=== PATIENT | female | born 1945 | race Caucasian/White ===

== ENCOUNTER 2016-05-25 20:20 | Emergency (ER) | payer MEDICARE ==
[2016-05-25 21:15] VITALS: RESP 18
[2016-05-25] MEDS ORDERED: SODIUM CHLORIDE 0.9% 1,000 ML IV ONE (21:27)
--- NOTE | 2016-05-25 21:31 | ED ---
General Adult HPI - General Chief complaint: Altered Mental Status Stated complaint: Confusion Time Seen by Provider: 05/25/16 21:05 Source: patient, family, RN notes reviewed Mode of arrival: ambulatory Limitations: altered mental status - History of Present Illness Initial comments: Patient is a pleasant 70-year-old female presenting to the emergency department complaining of reported change in mental status. Patient states she feels fine and has no complaints. Patient denies feeling confused. Family states several people have noticed her being confused over the past 3-4 days. Son noticed more confusion today. Patient was trying to turn on the telephone with remote control. Patient had difficulty setting the table for dinner. Patient has made strange comments over the past couple of days. This is a new problem for the patient. - Related Data Home Medications Medication Instructions Recorded Confirmed Levothyroxine Sodium [Synthroid] 1 tab PO DAILY 05/25/16 05/25/16 predniSONE 1 tab PO DAILY 05/25/16 05/25/16 Allergies Allergy/AdvReac Type Severity Reaction Status Date / Time morphine AdvReac Unknown Verified 04/15/16 15:15 sertraline [From Zoloft] AdvReac Unknown Verified 04/15/16 15:15 venlafaxine [From Effexor] AdvReac Unknown Verified 04/15/16 15:15 Review of Systems ROS Statement: Those systems with pertinent positive or pertinent negative responses have been documented in the HPI. ROS Other: All systems not noted in ROS Statement are negative. Constitutional: Denies: fever Eyes: Denies: eye pain ENT: Denies: ear pain Respiratory: Denies: cough Cardiovascular: Denies: chest pain Endocrine: Denies: fatigue Gastrointestinal: Denies: abdominal pain Genitourinary: Denies: dysuria Musculoskeletal: Denies: back pain Skin: Denies: rash Neurological: Reports: confusion. Denies: headache, weakness Past Medical History Past Medical History: Thyroid Disorder Additional Past Medical History / Comment(s): glaucoma History of Any Multi-Drug Resistant Organisms: None Reported Additional Past Surgical History / Comment(s): ankle Past Psychological History: Anxiety Smoking Status: Never smoker Past Alcohol Use History: None Reported Past Drug Use History: None Reported General Exam Limitations: altered mental status General appearance: alert, in no apparent distress Head exam: Present: atraumatic Eye exam: Present: normal appearance, PERRL, EOMI. Absent: nystagmus ENT exam: Present: normal oropharynx Neck exam: Present: normal inspection Respiratory exam: Present: normal lung sounds bilaterally Cardiovascular Exam: Present: regular rate, normal rhythm GI/Abdominal exam: Present: soft. Absent: tenderness Extremities exam: Present: normal inspection Neurological exam: Present: alert, oriented X3, CN II-XII intact. Absent: motor sensory deficit Expanded Patient oriented to: Present: person, place, time Speech: Present: fluid speech Cranial nerves: EOM's Intact: Normal, Facial Sensation: Normal Cerebellar function: Finger to Nose: Normal Sensory exam: Upper Extremity Light Touch: Normal, Lower Extremity Light Touch: Normal Motor strength exam: RUE: 5, LUE: 5, RLE: 5, LLE: 5 Eye Response: (4) open spontaneously Motor Response: (6) obeys commands Verbal Response: (5) oriented Psychiatric exam: Present: normal affect, normal mood Skin exam: Absent: rash Course Vital Signs 05/25/16 05/25/16 05/25/16 21:11 21:40 22:00 Temperature 97.7 F 97.4 F L Pulse Rate 85 82 84 Respiratory 18 18 18 Rate Blood Pressure 186/84 156/79 162/76 O2 Sat by Pulse 97 100 99 Oximetry 05/25/16 22:03 Temperature Pulse Rate 84 Respiratory 18 Rate Blood Pressure 162/76 O2 Sat by Pulse 99 Oximetry EKG Findings - EKG Comments: EKG Findings:: Normal sinus rhythm 72. Normal intervals. Normal axis. Normal QRS. Normal ST-T. Medical Decision Making - Medical Decision Making Patient reevaluated and resting comfortably in bed. Case was discussed in detail with Dr. Durán who felt patient could comfortably go home however could be admitted if family was not comfortable with this. Patient and family updated on results. Patient requests discharge multiple times. Family is comfortable with discharge and will insure close follow-up with Dr. Hall. - Lab Data Result diagrams: 05/25/16 21:30 05/25/16 21:30 Lab Results 05/25/16 05/25/16 05/25/16 Range/Units 21:30 21:30 21:30 WBC 9.7 (3.8-10.6) k/uL RBC 4.26 (3.80-5.40) m/uL Hgb 14.0 (11.4-16.0) gm/dL Hct 42.7 (34.0-46.0) % MCV 100.3 H (80.0-100.0) fL MCH 32.9 (25.0-35.0) pg MCHC 32.8 (31.0-37.0) g/dL RDW 12.7 (11.5-15.5) % Plt Count 262 (150-450) k/uL Neutrophils % 84 % Lymphocytes % 8 % Monocytes % 6 % Eosinophils % 0 % Basophils % 1 % Neutrophils # 8.2 H (1.3-7.7) k/uL Lymphocytes # 0.7 L (1.0-4.8) k/uL Monocytes # 0.6 (0-1.0) k/uL Eosinophils # 0.0 (0-0.7) k/uL Basophils # 0.1 (0-0.2) k/uL PT (9.0-12.0) sec INR (<1.1) APTT (22.0-30.0) sec Sodium 139 (137-145) mmol/L Potassium 4.2 (3.5-5.1) mmol/L Chloride 102 (98-107) mmol/L Carbon Dioxide 28 (22-30) mmol/L Anion Gap 9 mmol/L BUN 24 H (7-17) mg/dL Creatinine 0.80 (0.52-1.04) mg/dL Est GFR (MDRD) Af Amer >60 (>60 ml/min/1.73 sqM) Est GFR (MDRD) Non-Af >60 (>60 ml/min/1.73 sqM) Glucose 109 H (74-99) mg/dL Calcium 10.0 (8.4-10.2) mg/dL Total Bilirubin 0.7 (0.2-1.3) mg/dL AST 28 (14-36) U/L ALT 42 (9-52) U/L Alkaline Phosphatase 57 (38-126) U/L Total Creatine Kinase 79 (30-135) U/L CK-MB (CK-2) 1.7 (0.0-2.4) ng/mL CK-MB (CK-2) Rel Index 2.2 Troponin I <0.012 (0.000-0.034) ng/mL Total Protein 6.6 (6.3-8.2) g/dL Albumin 4.1 (3.5-5.0) g/dL Urine Color Urine Appearance (Clear) Urine pH (5.0-8.0) Ur Specific [place] (1.001-1.035) Urine Protein (Negative) Urine Glucose (UA) (Negative) Urine Ketones (Negative) Urine Blood (Negative) Urine Nitrate (Negative) Urine Bilirubin (Negative) Urine Urobilinogen (<2.0) mg/dL Ur Leukocyte Esterase (Negative) Urine RBC (0-5) /hpf Urine WBC (0-5) /hpf Urine Mucus (None) /hpf Urine Opiates Screen (NotDetected) Ur Oxycodone Screen (NotDetected) Urine Methadone Screen (NotDetected) Ur Propoxyphene Screen (NotDetected) Ur Barbiturates Screen (NotDetected) U Tricyclic Antidepress (NotDetected) Ur Phencyclidine Scrn (NotDetected) Ur Amphetamines Screen (NotDetected) U Methamphetamines Scrn (NotDetected) U Benzodiazepines Scrn (NotDetected) Urine Cocaine Screen (NotDetected) U Marijuana (THC) Screen (NotDetected) 05/25/16 05/25/16 Range/Units 21:30 22:50 WBC (3.8-10.6) k/uL RBC (3.80-5.40) m/uL Hgb (11.4-16.0) gm/dL Hct (34.0-46.0) % MCV (80.0-100.0) fL MCH (25.0-35.0) pg MCHC (31.0-37.0) g/dL RDW (11.5-15.5) % Plt Count (150-450) k/uL Neutrophils % % Lymphocytes % % Monocytes % % Eosinophils % % Basophils % % Neutrophils # (1.3-7.7) k/uL Lymphocytes # (1.0-4.8) k/uL Monocytes # (0-1.0) k/uL Eosinophils # (0-0.7) k/uL Basophils # (0-0.2) k/uL PT 10.2 (9.0-12.0) sec INR 1.0 (<1.1) APTT 23.6 (22.0-30.0) sec Sodium (137-145) mmol/L Potassium (3.5-5.1) mmol/L Chloride (98-107) mmol/L Carbon Dioxide (22-30) mmol/L Anion Gap mmol/L BUN (7-17) mg/dL Creatinine (0.52-1.04) mg/dL Est GFR (MDRD) Af Amer (>60 ml/min/1.73 sqM) Est GFR (MDRD) Non-Af (>60 ml/min/1.73 sqM) Glucose (74-99) mg/dL Calcium (8.4-10.2) mg/dL Total Bilirubin (0.2-1.3) mg/dL AST (14-36) U/L ALT (9-52) U/L Alkaline Phosphatase (38-126) U/L Total Creatine Kinase (30-135) U/L CK-MB (CK-2) (0.0-2.4) ng/mL CK-MB (CK-2) Rel Index Troponin I (0.000-0.034) ng/mL Total Protein (6.3-8.2) g/dL Albumin (3.5-5.0) g/dL Urine Color Yellow Urine Appearance Clear (Clear) Urine pH 6.0 (5.0-8.0) Ur Specific [place] 1.017 (1.001-1.035) Urine Protein Negative (Negative) Urine Glucose (UA) Negative (Negative) Urine Ketones 1+ H (Negative) Urine Blood Moderate H (Negative) Urine Nitrate Negative (Negative) Urine Bilirubin Negative (Negative) Urine Urobilinogen <2.0 (<2.0) mg/dL Ur Leukocyte Esterase Negative (Negative) Urine RBC 25 H (0-5) /hpf Urine WBC 3 (0-5) /hpf Urine Mucus Rare H (None) /hpf Urine Opiates Screen Not Detected (NotDetected) Ur Oxycodone Screen Not Detected (NotDetected) Urine Methadone Screen Not Detected (NotDetected) Ur Propoxyphene Screen Not Detected (NotDetected) Ur Barbiturates Screen Not Detected (NotDetected) U Tricyclic Antidepress Not Detected (NotDetected) Ur Phencyclidine Scrn Not Detected (NotDetected) Ur Amphetamines Screen Not Detected (NotDetected) U Methamphetamines Scrn Not Detected (NotDetected) U Benzodiazepines Scrn Not Detected (NotDetected) Urine Cocaine Screen Not Detected (NotDetected) U Marijuana (THC) Screen Not Detected (NotDetected) - Radiology Data Radiology results: report reviewed (Computed tomography scan shows no acute process) Disposition Clinical Impression: Confusion Disposition: HOME SELF-CARE Condition: Stable Instructions: Altered Mental Status (ED) Additional Instructions: Please follow-up with Dr. Hall tomorrow. Return for increased confusion, weakness, fevers, worsening symptoms or other concerns. Please have Dr. Hall review results from today and urine culture results. Referrals: Alex Hall MD [Primary Care Provider] - 1-2 days
[2016-05-25 21:43] LABS: Basophils # (A) 0.1 k/uL (0-0.2); Basophils % (A) 1 %; CH 33.9; CHCM 33.9; Eosinophils % (A) 0 %; HCT 42.7 % (34.0-46.0); HDW 2.17; Luc # (Auto) 0.09; Luc % (Auto) 1; Lymphocytes # (A) 0.7 k/uL (1.0-4.8); Lymphocytes % (A) 8 %; MCH 32.9 pg (25.0-35.0); MCHC 32.8 g/dL (31.0-37.0); MCV 100.3 fL (80.0-100.0); Mean Platelet Volume 7.3; Monocytes # (A) 0.6 k/uL (0-1.0); Monocytes % (A) 6 %; Neutrophils # (A) 8.2 k/uL (1.3-7.7); Neutrophils % (A) 84 %; RBC 4.26 m/uL (3.80-5.40); RDW 12.7 % (11.5-15.5); WBC 9.7 k/uL (3.8-10.6); WBC (Perox) 10.38
[2016-05-25 21:58] LABS: Partial Thromboplastin Time 23.6 sec (22.0-30.0); Prothrombin Time 10.2 sec (9.0-12.0)
[2016-05-25 22:03] LABS: ALT 42 U/L (9-52); AST 28 U/L (14-36); Alkaline Phosphatase 57 U/L (38-126); Anion Gap 9 mmol/L; Blood Urea Nitrogen 24 mg/dL (7-17); Carbon Dioxide 28 mmol/L (22-30); Chloride 102 mmol/L (98-107); Glucose 109 mg/dL (74-99); Non-African American GFR(MDRD) >60 (>60 ml/min/1.73 sqM); Potassium 4.2 mmol/L (3.5-5.1); Sodium 139 mmol/L (137-145); Total Bilirubin 0.7 mg/dL (0.2-1.3); Total Protein 6.6 g/dL (6.3-8.2)
--- NOTE | 2016-05-25 22:15 | CT ---
EXAMINATION TYPE: CT brain wo con DATE OF EXAM: 05/25/2016 10:00 PM COMPARISON: NONE HISTORY: Confusion CT DLP: mGycm Automated exposure control for dose reduction was used. FINDINGS: There is mild cerebral cortical atrophy. There is no mass effect nor midline shift. There is no sign of intracranial hemorrhage. The calvarium is intact. There is incomplete pneumatization of left masto id sinus. IMPRESSION: Mild atrophy. No acute intracranial abnormality. There is evidence for mild left-sided mastoiditis.
[2016-05-25 22:43] LABS: Creatine Kinase 79 U/L (30-135)
[2016-05-25 22:56] LABS: Creatine Kinase MB 1.7 ng/mL (0.0-2.4); Troponin I <0.012 ng/mL (0.000-0.034)
[2016-05-25 23:05] LABS: Appearance,Urine Clear (Clear); Bilirubin,Urine Negative (Negative); Glucose,Urine (UA) Negative (Negative); Ketones,Urine 1+ (Negative); Leukocyte Esterase,Urine Negative (Negative); Mucus,Urine Rare /hpf; Nitrite,Urine Negative (Negative); Particle Count 1296; Protein,Urine Negative (Negative); RBC,Urine 25 /hpf (0-5); Specific Gravity,Urine 1.017 (1.001-1.035); UA Billing (MACRO vs. MICRO) MICRO; Urobilinogen,Urine <2.0 mg/dL (<2.0); WBC,Urine 3 /hpf (0-5)
--- NOTE | 2016-05-25 23:12 | XR ---
EXAMINATION TYPE: XR chest 2V DATE OF EXAM: 05/25/2016 10:42 PM COMPARISON: NONE HISTORY: Confusion TECHNIQUE: Frontal and lateral views of the chest are obtained. FINDINGS: Heart and mediastinum are normal. Lungs are clear. Diaphragm is normal. Bony thorax is int act. There are chest leads. Pulmonary vascularity is normal. IMPRESSION: Normal chest
[2016-05-25] MEDS ORDERED: SODIUM CHLORIDE 0.9% 500 ML IV STA (23:19)
[2016-05-26 00:51] VITALS: BP 171/80; PULSE 87; TEMP 97.4
== END 2016-05-26 00:51 | disposition home or self-care (01) ==
LOC: EC 20:20
DX: R41.0 Disorientation, unspecified (principal); E07.9 Disorder of thyroid, unspecified; Z79.52 Long term (current) use of systemic steroids; Z79.899 Other long term (current) drug therapy; Z88.5 Allergy status to narcotic agent; Z88.8 Allergy status to other drugs, medicaments and biological substances
CPT/HCPCS: 36415; 70450; 71020; 80053; 80306; 81001; 82550; 82553; 84484; 85025; 85610; 85730; 87086; 93005; 96360; 96361; 99285

== ENCOUNTER 2016-06-01 15:46 | Inpatient (IN) | payer MEDICARE ==
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
[2016-06-01 17:33] LABS: Basophils % (A) 0 %; CH 33.9; CHCM 33.9; Eosinophils % (A) 0 %; HCT 43.1 % (34.0-46.0); HDW 2.22; HGB 14.4 gm/dL (11.4-16.0); Luc # (Auto) 0.03; Luc % (Auto) 0; Lymphocytes # (A) 0.3 k/uL (1.0-4.8); Lymphocytes % (A) 5 %; MCH 33.5 pg (25.0-35.0); MCHC 33.4 g/dL (31.0-37.0); MCV 100.4 fL (80.0-100.0); Mean Platelet Volume 7.2; Monocytes # (A) 0.3 k/uL (0-1.0); Monocytes % (A) 4 %; Neutrophils # (A) 6.2 k/uL (1.3-7.7); Neutrophils % (A) 91 %; RBC 4.29 m/uL (3.80-5.40); RDW 12.5 % (11.5-15.5); WBC 6.9 k/uL (3.8-10.6); WBC (Perox) 7.34
[2016-06-01 17:37] LABS: Acetaminophen <10.0 ug/mL; Anion Gap 8 mmol/L; Blood Urea Nitrogen 14 mg/dL (7-17); Calcium 10.2 mg/dL (8.4-10.2); Carbon Dioxide 30 mmol/L (22-30); Chloride 101 mmol/L (98-107); Glucose 119 mg/dL (74-99); Non-African American GFR(MDRD) >60 (>60 ml/min/1.73 sqM); Potassium 4.3 mmol/L (3.5-5.1); Salicylate <1.0 mg/dL; Sodium 139 mmol/L (137-145)
[2016-06-01 18:06] LABS: Appearance,Urine Clear (Clear); Bilirubin,Urine Negative (Negative); Glucose,Urine (UA) Negative (Negative); Ketones,Urine Negative (Negative); Leukocyte Esterase,Urine Negative (Negative); Mucus,Urine Rare /hpf; Nitrite,Urine Negative (Negative); Particle Count 356; Protein,Urine Negative (Negative); RBC,Urine 4 /hpf (0-5); Specific Gravity,Urine 1.004 (1.001-1.035); Squamous Epithelial Cell,Urine <1 /hpf (0-4); UA Billing (MACRO vs. MICRO) MICRO; Urobilinogen,Urine <2.0 mg/dL (<2.0); WBC,Urine <1 /hpf (0-5)
[2016-06-01] MEDS ORDERED: ALPRAZolam 0.5 MG TAB PO STA (21:32)
[2016-06-01] MEDS ORDERED: MAGNESIUM HYDROXIDE 2,400 MG/10 ML CUP PO PRN (21:59)
[2016-06-01] MEDS ORDERED: ACETAMINOPHEN TAB 325 MG TAB PO PRN (21:59)
[2016-06-01] MEDS ORDERED: MAG HYDROX/AL HYDROX/SIMETH 30 ML CUP PO PRN (21:59)
[2016-06-01] MEDS ORDERED: LORazepam 2 MG/ML SYRINGE IM PRN (22:12)
[2016-06-02 00:01] VITALS: BMI 50.8
[2016-06-02] MEDS: LEVOTHYROXINE 50 MCG TAB PO SCH ×2 (08:34→10:37)
[2016-06-02] MEDS: METOPROLOL TARTRATE 25 MG TAB PO SCH ×2 (08:36→21:15)
[2016-06-02] MEDS: PANTOPRAZOLE 40 MG TABLET PO SCH (08:36)
[2016-06-02] MEDS ORDERED: prednisoLONE ACETATE 1% OPHTH DROPS 1 ML BTL BOTH EYES SCH ×2 (09:00)
[2016-06-02] MEDS ORDERED: predniSONE 10 MG TAB PO SCH (09:00)
[2016-06-02] MEDS ORDERED: risperiDONE 0.5 MG TAB PO SCH (21:00)
[2016-06-02] MEDS: LATANOPROST 0.005% OPHTH DROPS 2.5 ML BTL BOTH EYES SCH (21:18)
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
[2016-06-03] MEDS: LEVOTHYROXINE 50 MCG TAB PO SCH (11:32)
[2016-06-03] MEDS: METOPROLOL TARTRATE 25 MG TAB PO SCH ×2 (11:33→22:07)
[2016-06-03] MEDS: PANTOPRAZOLE 40 MG TABLET PO SCH (11:33)
--- NOTE | 2016-06-03 12:06 | P.PN ---
Subjective Principal diagnosis: SUBJECTIVE: Patient is guarded,confused ,disoriented ,not able to focus or sustain attention ,kept asking me same question "Can I go home ,I do not belong here ", impaired ability to carry conversation,perseveration,disturbance in executive functioning,irritability ,not able to participate in group therapy due to confusion PER NURSING STAFF: Patient tried to elope last night ,refusing oral medications and received IM Ativan I reviewed DR Hall consultation ,he reports that thyroid function were WNL on MENTAL STATUS EXAM: Patient is 70 years old female ,wearing hospital gown,psychomotor agitation , confused ,demanding to be discharged ,uncooperative ,speech is tangential , alert to person only,seems preoccupied ,insight and judgment are impaired ASSESSMENT:Patient seems preoccupied,not able to sustain attention,refusing medication ,responding to internal stimuli PLAN: 1) Change Ativan to Xanax,increase Risperdal,try to contact family for collateral information 2) Court hearing on 06/06 Objective - Vital Signs Vital signs: Vital Signs Temp 98.4 F 06/03/16 06:42 Pulse 96 06/03/16 11:34 Resp 18 06/03/16 11:34 BP 153/67 06/03/16 11:34 Pulse Ox 96 06/02/16 00:33 - Labs CBC & Chem 7: 06/01/16 17:01 06/01/16 17:01
[2016-06-03] MEDS: ALPRAZolam 0.5 MG TAB PO SCH ×2 (17:00→22:07)
[2016-06-03] MEDS: LORazepam 1 MG TAB PO PRN (19:27)
[2016-06-03] MEDS: ZIPRASIDONE 20 MG VIAL IM PRN (19:51)
[2016-06-03] MEDS ORDERED: QUEtiapine 50 MG TAB PO SCH (21:00)
[2016-06-03] MEDS: LATANOPROST 0.005% OPHTH DROPS 2.5 ML BTL BOTH EYES SCH (22:07)
[2016-06-04] MEDS: LORazepam 1 MG TAB PO PRN ×2 (03:40→12:36)
[2016-06-04] MEDS: LEVOTHYROXINE 50 MCG TAB PO SCH (09:39)
[2016-06-04] MEDS: ALPRAZolam 0.5 MG TAB PO SCH (09:39)
[2016-06-04] MEDS: PANTOPRAZOLE 40 MG TABLET PO SCH (09:39)
[2016-06-04] MEDS: METOPROLOL TARTRATE 25 MG TAB PO SCH ×3 (09:40→21:53)
--- NOTE | 2016-06-04 09:59 | PN ---
DATE OF SERVICE: 06/03/2016 CHIEF COMPLAINT: Re-evaluation. HISTORY OF PRESENT ILLNESS: A 70-year-old was admitted to the psychiatry unit for some psychosis. The patient has been on steroids for significantly inflamed left eye muscles. She is also noted to be hypothyroid. Thyroid status is improved. The patient is exhibiting some odd behavior. The patient has been seen by the psychiatrist. At my visit today, the patient is standing in the lobby waiting to talk to the psychiatrist. She has all her belongings in paper bags and she is carrying them around. The patient somewhat more distant today than her usual pleasant. Patient not examined but the patient's condition discussed with the patient. Patient's condition remains guarded. ASSESSMENT: 1. Psychosis. 2. 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 3. Steroid use for left eye swelling of all the recti muscles. 4. Hypothyroidism. 5. Chronic anxiety. PLAN: Continue present medical regimen. Patient's condition discussed with the patient.
--- NOTE | 2016-06-04 12:54 | P.PN ---
Progress Note - Text SUBJECTIVE: Patient was seen in her room ,refused to talk to stripping cutter and winder ,was yelling "No I am not talking to you ,you betrayed me ,you took my sister side and you are keeping me here ,get out of my room",patient is still refusing oral medications , despite she deferred yesterday ,she has been non compliant with our recommendations Received call from her youngest son "Alejandro"who is living in [facility],he informed that at least three of patient siblings have Dementia and her mother in [facility] from Dementia ,patient oldest son "Sergio"who is living in this area ,has been in [facility] since February 2016 for probation violation related to his drinking,patient lost her son "Boyd" in 1995 due to car accident "Sergio feeling guilty as he was transport truck driver ",PCP tried patient on different antidepressant but patient refused to take it,Alejandro stated that patient did not show any memory problem or confusion till Dec.16 after started on Prednisone MENTAL STATUS EXAM: Patient is casually dressed ,fair grooming ,angry and irritable , suspicious and paranoia ,refused to answer any question and kept saying "No,no", psychomotor agitation and difficulty to redirect,insight and judgment impaired . PER NURSING STAFF:From last evening ("Reported to this newswriter by [facility], that patient was observed in library trying to get a fellow patient to go with her by trying to pull her up by fellow's patient wrist and moving fellow patient's walker out of the way. Patient then was observed walking down the hallway going into fellow patient's rooms and would not respond to staff's verbal redirection. Patient keep yelling at staff "No, leave me alone". Patient then walked to the front door and attempted to open the door. Staff attempted to verbally deescalate patient and reorientate her. Patient was also holding a pen in her hand, staff removed pen out of patient's hand. Patient was escorted away from the front door by staff. Patient refused to walk with staff at certain points. Patient was offered a wheelchair however refused. Patient started to scream in a loud manner to leave her alone. Patient then was walked back to her room by two nursing staff. In Patient's room Patient spit at nursing staff and [facility] Tech Beny. Patient then was making verbal threats towards staff, "You better leave me alone". Security was at bedside to help. Patient was given IM of geodon for violent and aggressive behavior.") ASSESSMENT : PSYCHOSIS NOS RULE OUT DEMENTIA WITH DELUSION AND BEHAVIOR DISTURBANCE PLAN:Will restart patient On risperdal and long acting IM form as she is resistant to oral medication
[2016-06-04] MEDS ORDERED: ALPRAZolam 0.5 MG TAB PO PRN (13:04)
[2016-06-04] MEDS: risperiDONE ODT 1 MG TAB PO SCH ×2 (21:37→21:53)
[2016-06-04] MEDS: LATANOPROST 0.005% OPHTH DROPS 2.5 ML BTL BOTH EYES SCH ×3 (21:38→22:19)
[2016-06-05] MEDS: PANTOPRAZOLE 40 MG TABLET PO SCH ×2 (07:30→10:02)
[2016-06-05] MEDS: risperiDONE ODT 1 MG TAB PO SCH ×3 (10:02→20:22)
[2016-06-05] MEDS: METOPROLOL TARTRATE 25 MG TAB PO SCH ×3 (10:02→20:22)
[2016-06-05] MEDS: LEVOTHYROXINE 50 MCG TAB PO SCH ×2 (10:02)
[2016-06-05] MEDS: ZIPRASIDONE 20 MG VIAL IM PRN (17:26)
--- NOTE | 2016-06-05 17:39 | P.PN ---
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 RN notices profanity written on the wall around the mirror in black ink. Patient stated she wrote on the wall because she is mad at her sister for admitting her to the MHU. Patient feels she does not need to be here. Patient states she wrote on the wall sometime last night. Patient was asked not to write on the arthur anymore. Patient states she will comply.",Patient refused her oral Risperdol this morning ,had two PRN Ativan Patient refused to visit with her son and brother last evening MENTAL STATUS EXAM: Patient is casually dressed ,fair grooming ,no eyes contact ,paranoia ,seems responding to internal cues ,very labile ,denies any suicidal or homicidal ideation but does not have insight to her illness and need to be on medications ASSESSMENT:patient is still psychotic ,labile ,refusing oral medication PLAN:Will pursue court order for compliance with medication Objective - Vital Signs Vital signs: Vital Signs Temp 98.6 F 06/05/16 00:35 Pulse 87 06/05/16 10:00 Resp 18 06/05/16 10:00 BP 175/84 06/05/16 10:00 Pulse Ox 99 06/04/16 05:28 - Labs CBC & Chem 7: 06/01/16 17:01 06/01/16 17:01
[2016-06-05] MEDS: LATANOPROST 0.005% OPHTH DROPS 2.5 ML BTL BOTH EYES SCH (20:23)
[2016-06-06] MEDS: METOPROLOL TARTRATE 25 MG TAB PO SCH ×2 (10:11→20:08)
[2016-06-06] MEDS: LEVOTHYROXINE 50 MCG TAB PO SCH (10:11)
[2016-06-06] MEDS: risperiDONE ODT 1 MG TAB PO SCH (10:11)
[2016-06-06] MEDS: LORazepam 1 MG TAB PO PRN ×2 (10:13→20:07)
[2016-06-06] MEDS: PANTOPRAZOLE 40 MG TABLET PO SCH (10:13)
[2016-06-06] MEDS ORDERED: ZIPRASIDONE 20 MG VIAL IM PRN (11:41)
--- NOTE | 2016-06-06 11:57 | P.PN ---
Subjective SUBJECTIVE: Patient was seen in her room ,refused to talk to it account manager ,was yelling "No I am not talking to you ,get out of my room ",patient is responding to internal cues,agitated, disorganized behavior,patient is still refusing oral medications , she has been non compliant with our recommendations PER NURSING STAFF: Patient received PRN Geodon and Ativan ,still aggressive ,disorganized speech and behavior MENTAL STATUS EXAM: Patient is casually dressed ,,angry and irritable , suspicious and paranoia , refused to answer any question and kept saying "No,no",psychomotor agitation and difficulty to redirect,insight and judgment impaired . ASSESSMENT :Patient is psychotic ,refusing treatment ,uncooperative and labile PLAN: Will pursue court on Thursday to force medication ,increase PRN Geodon to 20 mg BID Objective - Vital Signs Vital signs: Vital Signs Temp 97.9 F 06/06/16 05:26 Pulse 72 06/06/16 05:26 Resp 16 06/06/16 05:26 BP 125/66 06/06/16 05:26 Pulse Ox 99 06/04/16 05:28 - Labs CBC & Chem 7: 06/01/16 17:01 06/01/16 17:01
[2016-06-06] MEDS ORDERED: WATER FOR INJECTION, STERILE 10 ML IV ONE (19:59)
[2016-06-06] MEDS: risperiDONE ODT 2 MG TAB PO SCH (20:08)
[2016-06-06] MEDS: LATANOPROST 0.005% OPHTH DROPS 2.5 ML BTL BOTH EYES SCH (21:49)
[2016-06-07] MEDS: risperiDONE ODT 2 MG TAB PO SCH ×2 (09:52→22:44)
[2016-06-07] MEDS: LEVOTHYROXINE 50 MCG TAB PO SCH (09:52)
[2016-06-07] MEDS: METOPROLOL TARTRATE 25 MG TAB PO SCH ×2 (09:52→22:44)
[2016-06-07] MEDS: PANTOPRAZOLE 40 MG TABLET PO SCH (09:53)
--- NOTE | 2016-06-07 11:50 | P.PN ---
Progress Note - Text Interval history: Patient seen in cross coverage today for Dr. Manzano. She reports that she seems to be sleeping some. She does not seem to be eating that well per report. She seems to relay that she's taking the medications at the nurses bring her. She seems to relay that she feels the same as when she came in. She is not agreeable to meet with me in the interview room but seems agreeable to talk to me in her room. Mental status exam: Patient is seen in her room, she did not seem agreeable to me with me in the interview room. She said 'why would I want to talk to you.' She does seem agreeable to meet with me in her room. Her mood is described as ' my people have done me wrong.' Regarding thoughts of harm to self or others she relays no different. She seems to deny any hallucinations. Her affect is restricted. Her eye contact is poor. She does not show any significant degree of agitation. Plan: We'll maintain her compliance with ordered Risperdal. Geodon is ordered as needed. We'll continue to cover this patient for Dr. Manzano through the weekend.
[2016-06-07] MEDS: LORazepam 1 MG TAB PO PRN (17:21)
[2016-06-07] MEDS: LATANOPROST 0.005% OPHTH DROPS 2.5 ML BTL BOTH EYES SCH (22:44)
[2016-06-08] MEDS: LEVOTHYROXINE 50 MCG TAB PO SCH (10:03)
[2016-06-08] MEDS: METOPROLOL TARTRATE 25 MG TAB PO SCH ×2 (10:03→21:15)
[2016-06-08] MEDS: PANTOPRAZOLE 40 MG TABLET PO SCH (10:04)
[2016-06-08] MEDS: LORazepam 1 MG TAB PO PRN (10:10)
[2016-06-08] MEDS: risperiDONE ODT 2 MG TAB PO SCH ×2 (10:19→21:15)
--- NOTE | 2016-06-08 11:58 | P.PN ---
Progress Note - Text Interval history: Patient seen in cross coverage today for Dr. Manzano. She reports that she did sleep well last night, she seems to relay that she is eating well. She does state that she is taking the medication that the nurse is giving her. She does not verbalize any adverse side effects. She makes reference to reading the paper today and doing the crossword puzzle which she finished. Mental status exam: She is found in her room. She is not cooperative to coming to the interview room but is agreeable to answer my questions in her room. Regarding her mood she makes reference to wanting to be home. Her affect shows a little range today. She does not show any agitation. She denies any thoughts of harm to self or others. She denies any hallucinations. Plan: We'll maintain current psychotropic medication regimen. We will monitor her compliance. Monitor for any medication side effects. Dr. Manzano to resume care this patient starting tomorrow.
--- NOTE | 2016-06-08 12:07 | P.PN ---
Progress Note - Text Addendum note: Patient stopped me in the hallway and verbalized about wanting to show something that was protruding and lifted her sweatshirt and seem to point to her rib cage area. I did direct her to discuss this concern with nursing staff and will follow-up with nursing staff regarding any concerns.
--- NOTE | 2016-06-08 16:29 | XR ---
EXAMINATION TYPE: XR chest 2V DATE OF EXAM: 06/08/2016 4:18 PM COMPARISON: 05/25/2016 HISTORY: Injury. Pain. TECHNIQUE: Frontal and lateral views of the chest are obtained. FINDINGS: Heart and mediastinum are normal. Lungs are clear. There is no evidence of pleural effusio n or pneumothorax. Bones appear osteopenic. There is no evidence of a chest wall mass. IMPRESSION: No active cardio pulmonary disease. No change.
--- NOTE | 2016-06-08 16:30 | XR ---
EXAMINATION TYPE: XR ribs LT DATE OF EXAM: 06/08/2016 4:18 PM COMPARISON: NONE HISTORY: Large lump on the chest wall TECHNIQUE: 2 views FINDINGS: There is no sign of pleural effusion or pneumothorax. The ribs appear intact. IMPRESSION: Negative left rib exam. No chest wall mass seen. If there is persistent clinical indicati on ultrasound or CT might be helpful.
[2016-06-08] MEDS: LATANOPROST 0.005% OPHTH DROPS 2.5 ML BTL BOTH EYES SCH (21:14)
[2016-06-09] MEDS: PANTOPRAZOLE 40 MG TABLET PO SCH (10:06)
[2016-06-09] MEDS: LEVOTHYROXINE 50 MCG TAB PO SCH (10:06)
[2016-06-09] MEDS: METOPROLOL TARTRATE 25 MG TAB PO SCH ×2 (10:06→20:59)
[2016-06-09] MEDS: risperiDONE ODT 2 MG TAB PO SCH ×2 (10:07→20:59)
--- NOTE | 2016-06-09 13:47 | P.PN ---
Progress Note - Text SUBJECTIVE: Patient denies any sleeping or appetite problems ,agreed to be seen in my office ,still asking to be discharged , psycho-education regarding her illness and need to be on psychotropic medications ,patient verbalized understanding and has been compliant with oral medications for last 2 days,talked about her losses ,was tearful as she said "[birth year] ,we were together since third grade",patient talked about her relationship with her sister "MARIA"and she was able to call her and told her "I know you caring about me that is why you put in the hospital" I talked with "MARIA"as patient was present in office ,discussed treatment options and outpatient court order to assure compliance with medications PER NURSING STAFF: No aggression or agitation for last 2 days ,taking her oral medications , started to participate in groups ,more cooperative and no irrational or acting out behavior Chest x ray and Rib x ray :Negative OBJECTIVE: Patient is casually dressed ,fair grooming ,less guarded ,labile ,tearful at times ,denies any suicidal or homicidal ideation,alert and oriented to person , place and month "Not able to tell me exact date",denies any hallucination , insight and judgment improving Plan: We'll maintain current psychotropic medication regimen. We will monitor her compliance. Monitor for any medication side effects. ADD RISPERDOL CONST 12.5 mg today ,court hearing tomorrow ,will recommend 90 days outpatient treatment
[2016-06-09] MEDS: LATANOPROST 0.005% OPHTH DROPS 2.5 ML BTL BOTH EYES SCH (20:58)
[2016-06-10 06:24] VITALS: TEMP 98.5
[2016-06-10 09:12] VITALS: BP 108/60; PULSE 92; RESP 18
[2016-06-10] MEDS: METOPROLOL TARTRATE 25 MG TAB PO SCH (09:12)
[2016-06-10] MEDS: LEVOTHYROXINE 50 MCG TAB PO SCH (09:12)
[2016-06-10] MEDS: PANTOPRAZOLE 40 MG TABLET PO SCH (09:12)
[2016-06-10] MEDS: risperiDONE ODT 2 MG TAB PO SCH (09:12)
--- NOTE | 2016-06-11 09:42 | DS ---
DATE OF ADMISSION: 06/01/2016 DATE OF DISCHARGE: 06/10/2016 CONSULTING PHYSICIAN: Wild. CONSULTING PROVIDER: Dr. Alex Hall. REASON FOR CONSULTATION: Medical management. DO YOU WANT CONSULTING PROVIDER NOTIFIED: He has already has been notified. ADMITTING DIAGNOSES: 1. Psychosis not otherwise specified, rule out drug-induced psychosis due to was steroid. Rule out major neurocognitive disorder with delusion. 2. Anxiety disorder. DISCHARGE DIAGNOSES: 1. 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 2. Mild cognitive deficit. 3. Delayed grief reaction and anxiety disorder. BRIEF SUMMARY OF ADMISSION NOTES: Please refer to my initial history and physical examination dictated on June 02. At that time, the patient was very confused, agitated, combative, severely psychotic, even she did require restraint in the emergency room. Patient was admitted on involuntary basis. HOSPITAL COURSE: Patient was seen by her primary care physician, Dr. Hall, who stated that usually patient is very pleasant, does not have any memory problem, and she was started on prednisone since mid April as she did have significant periorbital edema. According to his consultation, the patient just has mild hypothyroidism, eye problem for the last couple of months, history of osteopenia. Patient was initially refusing any oral medication and she was getting IM Geodon or IM Ativan do to agitation and combative behavior. I did contact patient's son, Alejandro , 2 or 3 times and I did have ( ) information from him regarding patient's living situation as she has been very independent living on her own since her 4 years ago and her main support is her sister who is living in the area. However, since she has been on prednisone she started getting suspicious paranoia, accusing her sister of stealing stuff from her home, but otherwise there is no memory problem and confusion prior to this incident. She said that there is strong family history of dementia in the family as her mother and couple of siblings had dementia. Patient was started on Risperdal 2 mg twice a day. In addition, she was given Risperdal Consta 12.5 mg on June 06 and another dose 12.5 on June 09, so total of 25 mg of her Risperdal Consta. Patient was able to tolerate medication and for the last 72 hours prior to the discharge, she was compliant with oral medication. She did not show any behavior aggression. No verbal or physical aggressive behavior. I did discuss with her the court hearing that we will have today on June 10 and my recommendation it will be that outpatient court order for 90 days, that she has to be continued on the psychotropic medication. Patient did agree about this recommendation. MENTAL STATUS EXAMINATION: At the time of the discharge, patient is alert. She gave good eye contact. Hygiene and grooming are appropriate. Speech was spontaneous and non-pressured. At times, circumstantial, but easy to redirect. She denied any homicidal or suicidal ideation. She denied any depressive symptoms. However, she stated that she has been missing her , who is birthday is coming on [birth year]. She denied any hallucination or paranoia. Her insight and judgment are improving. She was able to do Mini-Mental Status Examination and she did score 24 from 30 in the mini mental status and this shows that she has mild degree of cognitive deficit. She did agree to follow up with outpatient psychiatrist when she would be discharged. PLAN: 1. Patient will be discharged from the mental health unit today to return back home. I did discuss with her that she does not have to drive and that she will be cleared by the outpatient psychiatric. 2. Patient was given one month supply of Risperdal 2 mg twice a day. In addition to Risperdal Consta 25 mg IM next shot due June 23. Patient can use Xanax prescribed by Dr. Hall as needed for anxiety. Patient is aware that she is on court order for outpatient treatment for 90 days to assure her compliance with psychotropic medication. There is no eminent safety risk for her transition back to the outpatient care. alteration worker will have family meeting with her sister today at 3 p.m. then patient will be discharged after the family meeting. Prognosis fair with continued treatment and compliance with medication.
== END 2016-06-10 15:52 | disposition home or self-care (01) | DRG 885 ==
LOC: EC 15:46 → 3MHU 21:38
PROVIDERS: ADMIT Psychiatry & Neurology Psychiatry; ATTEND Psychiatry & Neurology Psychiatry
DX: F23 Brief psychotic disorder (principal); Z78.1 Physical restraint status; F43.22 Adjustment disorder with anxiety; E03.9 Hypothyroidism, unspecified; H40.9 Unspecified glaucoma; K21.9 Gastro-esophageal reflux disease without esophagitis; Z91.19 Patient's noncompliance with other medical treatment and regimen; Z79.899 Other long term (current) drug therapy; R41.89 Other symptoms and signs involving cognitive functions and awareness
CPT/HCPCS: 36415; 71020; 80048; 80306; 81001; 83520; 84443; 85025; 93005; 99285

== ENCOUNTER → 2016-07-15 | Outpatient (CLI) | payer MEDICARE | END | disposition home or self-care (01) | LOC: LABWHC1 16:14 | PROVIDERS: ATTEND Psychiatry & Neurology Psychiatry | DX: E03.9 Hypothyroidism, unspecified (principal) | CPT/HCPCS: 36415; 84439; 84443 ==

== ENCOUNTER 2016-07-20 00:56 | Emergency (ER) | payer MEDICARE ==
[2016-07-20] MEDS ORDERED: SODIUM CHLORIDE 0.9% 1,000 ML IV STA (01:26)
[2016-07-20] MEDS ORDERED: ONDANSETRON 4 MG/2 ML VIAL IVP STA (01:40)
[2016-07-20] MEDS ORDERED: LORazepam 2 MG/ML SYRINGE IV STA (01:40)
[2016-07-20] MEDS ORDERED: diphenhydrAMINE 50 MG/ML 1 ML VIAL IVP STA (01:40)
--- NOTE | 2016-07-20 01:55 | ED ---
General Adult HPI - General Chief complaint: Dizziness Stated complaint: nausea,insomnia Time Seen by Provider: 07/20/16 01:20 Source: patient, family, RN notes reviewed, old records reviewed Mode of arrival: ambulatory Limitations: no limitations - History of Present Illness Initial comments: This is a 70-year-old female ER for agitation, restlessness unable to sleep and altered mental status. Patient has been having issues for about 3-4 weeks now related to initial steroid dose, psychosis, and currently on antipsychotics which are not helping, she's bleeds are making her worse. Patient feels very agitated and very uneasy. - Related Data Home Medications Medication Instructions Recorded Confirmed Levothyroxine Sodium [Tirosint] 50 mcg PO DAILY 06/01/16 07/20/16 Previous Rx's Medication Instructions Recorded risperiDONE ODT [RisperDAL M-TAB] 2 mg PO BID 30 Days 06/10/16 Diazepam [Valium] 5 mg PO HS #30 tab 07/20/16 diphenhydrAMINE [Benadryl] 50 mg PO HS #30 capsule 07/20/16 Allergies Allergy/AdvReac Type Severity Reaction Status Date / Time morphine AdvReac Unknown Verified 06/02/16 00:36 sertraline [From Zoloft] AdvReac Unknown Verified 06/02/16 00:36 venlafaxine [From Effexor] AdvReac Unknown Verified 06/02/16 00:36 Review of Systems ROS Statement: Those systems with pertinent positive or pertinent negative responses have been documented in the HPI. ROS Other: All systems not noted in ROS Statement are negative. Past Medical History Past Medical History: Thyroid Disorder Additional Past Medical History / Comment(s): glaucoma History of Any Multi-Drug Resistant Organisms: None Reported Additional Past Surgical History / Comment(s): ankle Past Psychological History: Anxiety Smoking Status: Never smoker Past Alcohol Use History: None Reported Past Drug Use History: None Reported General Exam Limitations: no limitations, altered mental status General appearance: alert, anxious Head exam: Present: atraumatic, normocephalic, normal inspection Eye exam: Present: normal appearance, PERRL, EOMI. Absent: scleral icterus, conjunctival injection, periorbital swelling ENT exam: Present: normal exam, mucous membranes moist Neck exam: Present: normal inspection. Absent: tenderness, meningismus, lymphadenopathy Respiratory exam: Present: normal lung sounds bilaterally. Absent: respiratory distress, wheezes, rales, rhonchi, stridor Cardiovascular Exam: Present: regular rate, normal rhythm, normal heart sounds. Absent: systolic murmur, diastolic murmur, rubs, gallop, clicks GI/Abdominal exam: Present: soft, normal bowel sounds. Absent: distended, tenderness, guarding, rebound, rigid Extremities exam: Present: normal inspection, full ROM, normal capillary refill. Absent: tenderness, pedal edema, joint swelling, calf tenderness Back exam: Present: normal inspection Neurological exam: Present: alert, oriented X3, CN II-XII intact Psychiatric exam: Present: normal affect, normal mood Skin exam: Present: warm, dry, intact, normal color. Absent: rash Course Vital Signs 07/20/16 01:09 Temperature 98.4 F Pulse Rate 89 Respiratory 20 Rate Blood Pressure 195/85 O2 Sat by Pulse 97 Oximetry - Reevaluation(s) Reevaluation #1: 07/20/16 04:41 At this point symptoms are improved, patient resting comfortably EKG Findings - EKG Comments: EKG Findings:: EKG shows normal sinus rate of 86, DE 1:30, QRS 80, QTC 461 Medical Decision Making - Medical Decision Making 70 female to ER for evaluation of medication reaction akathisia, patient will be discharged home with Benadryl and Valium for night time, patient feeling better now and is okay for discharge - Lab Data Result diagrams: 07/20/16 01:57 07/20/16 01:57 Lab Results 07/20/16 07/20/16 07/20/16 Range/Units 01:57 01:57 01:57 WBC 5.4 (3.8-10.6) k/uL RBC 3.90 (3.80-5.40) m/uL Hgb 12.7 (11.4-16.0) gm/dL Hct 38.7 (34.0-46.0) % MCV 99.3 (80.0-100.0) fL MCH 32.6 (25.0-35.0) pg MCHC 32.8 (31.0-37.0) g/dL RDW 12.0 (11.5-15.5) % Plt Count 227 (150-450) k/uL Neutrophils % 62 % Lymphocytes % 23 % Monocytes % 10 % Eosinophils % 1 % Basophils % 0 % Neutrophils # 3.4 (1.3-7.7) k/uL Lymphocytes # 1.3 (1.0-4.8) k/uL Monocytes # 0.5 (0-1.0) k/uL Eosinophils # 0.1 (0-0.7) k/uL Basophils # 0.0 (0-0.2) k/uL Sodium 134 L (137-145) mmol/L Potassium 4.1 (3.5-5.1) mmol/L Chloride 97 L (98-107) mmol/L Carbon Dioxide 30 (22-30) mmol/L Anion Gap 7 mmol/L BUN 13 (7-17) mg/dL Creatinine 0.70 (0.52-1.04) mg/dL Est GFR (MDRD) Af Amer >60 (>60 ml/min/1.73 sqM) Est GFR (MDRD) Non-Af >60 (>60 ml/min/1.73 sqM) Glucose 101 H (74-99) mg/dL Calcium 9.8 (8.4-10.2) mg/dL Phosphorus 3.7 (2.5-4.5) mg/dL Magnesium 2.0 (1.6-2.3) mg/dL Total Bilirubin 0.8 (0.2-1.3) mg/dL AST 39 H (14-36) U/L ALT 42 (9-52) U/L Alkaline Phosphatase 61 (38-126) U/L Total Creatine Kinase 351 H (30-135) U/L CK-MB (CK-2) 4.1 H* (0.0-2.4) ng/mL CK-MB (CK-2) Rel Index 1.2 Troponin I <0.012 (0.000-0.034) ng/mL Total Protein 6.6 (6.3-8.2) g/dL Albumin 4.1 (3.5-5.0) g/dL TSH 2.500 (0.465-4.680) mIU/L Disposition Clinical Impression: Confusion, Psychosis, Medication reaction Disposition: HOME SELF-CARE Condition: Good Instructions: Dizziness (ED), Anxiety (ED) Prescriptions: Diazepam [Valium] 5 mg PO HS #30 tab diphenhydrAMINE [Benadryl] 50 mg PO HS #30 capsule Referrals: Alex Hall MD [Primary Care Provider] - 1-2 days Decision to Admit Reason: Admit from EC
[2016-07-20 03:17] LABS: Basophils % (A) 0 %; CH 33.8; CHCM 34.2; Eosinophils # (A) 0.1 k/uL (0-0.7); Eosinophils % (A) 1 %; HCT 38.7 % (34.0-46.0); HDW 2.32; HGB 12.7 gm/dL (11.4-16.0); Luc % (Auto) 4; Lymphocytes # (A) 1.3 k/uL (1.0-4.8); Lymphocytes % (A) 23 %; MCH 32.6 pg (25.0-35.0); MCHC 32.8 g/dL (31.0-37.0); MCV 99.3 fL (80.0-100.0); Monocytes # (A) 0.5 k/uL (0-1.0); Monocytes % (A) 10 %; Neutrophils # (A) 3.4 k/uL (1.3-7.7); Neutrophils % (A) 62 %; WBC 5.4 k/uL (3.8-10.6); WBC (Perox) 5.49
[2016-07-20 03:27] LABS: ALT 42 U/L (9-52); AST 39 U/L (14-36); Alkaline Phosphatase 61 U/L (38-126); Anion Gap 7 mmol/L; Blood Urea Nitrogen 13 mg/dL (7-17); Calcium 9.8 mg/dL (8.4-10.2); Carbon Dioxide 30 mmol/L (22-30); Chloride 97 mmol/L (98-107); Glucose 101 mg/dL (74-99); Non-African American GFR(MDRD) >60 (>60 ml/min/1.73 sqM); Phosphorous 3.7 mg/dL (2.5-4.5); Potassium 4.1 mmol/L (3.5-5.1); Sodium 134 mmol/L (137-145); Total Bilirubin 0.8 mg/dL (0.2-1.3); Total Protein 6.6 g/dL (6.3-8.2)
[2016-07-20 03:43] LABS: Creatine Kinase 351 U/L (30-135)
[2016-07-20 03:55] LABS: Troponin I <0.012 ng/mL (0.000-0.034)
[2016-07-20 04:27] LABS: Creatine Kinase MB 4.1 ng/mL (0.0-2.4)
[2016-07-20] MEDS ORDERED: DIAZEPAM 5 MG TAB PO STA (04:39)
[2016-07-20] MEDS ORDERED: diphenhydrAMINE 50 MG CAP PO STA (04:39)
[2016-07-20 05:04] VITALS: BP 126/61; PULSE 78; RESP 18; TEMP 97.6
== END 2016-07-20 05:13 | disposition home or self-care (01) ==
LOC: EC 00:56
DX: F19.959 Other psychoactive substance use, unspecified with psychoactive substance-induced psychotic disorder, unspecified (principal); T38.0X5A Adverse effect of glucocorticoids and synthetic analogues, initial encounter; E07.9 Disorder of thyroid, unspecified; Z79.899 Other long term (current) drug therapy; Z88.5 Allergy status to narcotic agent; Z88.8 Allergy status to other drugs, medicaments and biological substances
CPT/HCPCS: 99284 ×2; 96374 ×2; 96375 ×3; 96361 ×2; 36415; 93005; 80053; 84443; 82550; 82553; 83735; 84100; 84484; 85025; J2060; J1200; J2405

== ENCOUNTER → 2017-05-18 | Outpatient (CLI) | payer MEDICARE ==
--- NOTE | 2017-05-18 15:52 | BD ---
EXAMINATION TYPE: MG DEXA axial skeleton. DATE OF EXAM: 05/18/2017 COMPARISON: 04.20.2015 CLINICAL HISTORY: PT IS A 71 YR OLD FEMALE: ICD-10 CODE: M89.9 OSTEOPENIA Height: 63.2 Weight: 138 FRAX RISK QUESTIONS: Alcohol (3 or more units per day): NO Family History (Parent hip fracture): NO Glucocorticoids (More than 3mos): NO (Ex: prednisone, prednisolone, methylprednisolone, dexamethasone, and hydrocortisone). History of Fracture in Adulthood: NO Secondary Osteoporosis: NO 1. Type 1 Diabetes: NO 2. Hyperthyroidism: NO 3. Menopause before 45: NO 4. Malnutrition: NO 5. Chronic liver disease: NO Rheumatoid Arthritis: NO Current Tobacco Use: NO RISK FACTORS HISTORY OF: RT ANKLE WITH SURGICAL REPAIR >50 YRS OLD Family History of Osteoporosis: NONE KNOWN Active: YES Diet low in dairy products/other sources of calcium: NO Postmenopausal woman: YES AT 49 YRS OLD Hyperparathyroidism: NO Adrenal Insufficiency: NO MEDICATIONS: Thyroid Medications: YES, SYNTHROID How Lon-2 YRS Additional Medications: CALCIUM AND VIT D PRN Additional History: NOTHING ADDITIONAL TO NOTE EXAM MEASUREMENTS: Bone mineral densitometry was performed using the [employer] System. Bone mineral density as measured about the Lumbar spine is: ----- L1-L4(G/cm2): 0.869 T Score Values are as follows: ----- L1 -2.4 ----- L2: -2.6 ----- L3: -2.5 ----- L4: -2.9 ----- L1-L4: -2.6 Bone mineral density has: Decreased -5.9% SINCE 04.20.2015 STUDY Bone mineral density about the R hip (g/cm2): 0.664 Bone mineral density about the L hip (g/cm2): 0.711 T Score values are as follows: -----R Neck: -2.2 -----L Neck: -2.2 -----R Total: -2.7 -----L Total: -2.4 Bone mineral density has: Decreased -6.0% SINCE 04.20.2015 STUDY FRAX%S: THERE IS A 21.2% CHANCE OF A MAJOR OSTEOPOROTIC FX AND A 5.2% FOR A HIP FX....PROBABILITY OF FX IN 10 YRS TIME IMPRESSION: Osteoporosis (T Score less than -2.5) as noted by T Score values at the right hip and lumbar spine. There is increased fracture risk and therapy is usually indicated based on age. Re-Screen 1-2 years. NOTE: T-SCORE=SD OF THE YOUNG ADULT MEAN.
--- NOTE | 2017-05-20 07:19 | MM ---
Reason for exam: screening (asymptomatic). Last mammogram was performed 2 years and 3 months ago. History: Patient is postmenopausal and has history of other cancer at age 39. Family history of breast cancer in sister at age 60. Cyst aspiration of the left breast, 1999. Physical Findings: A clinical breast exam by your physician is recommended on an annual basis and results should be correlated with mammographic findings. MG 3D Screening Mammo W/Cad Bilateral CC and MLO view(s) were taken. Prior study comparison: February 19, 2015, bilateral MG screening mammo w CAD. February 06, 2014, bilateral MG screening mammo w CAD. The breast tissue is heterogeneously dense. This may lower the sensitivity of mammography. No significant changes when compared with prior studies. ASSESSMENT: Benign, BI-RAD 2 RECOMMENDATION: Routine screening mammogram of both breasts in 1 year.
== END | disposition home or self-care (01) ==
LOC: RADMAMWWP 14:37
PROVIDERS: ATTEND Obstetrics & Gynecology
DX: Z12.31 Encounter for screening mammogram for malignant neoplasm of breast (principal); M81.0 Age-related osteoporosis without current pathological fracture
CPT/HCPCS: 77063; 77067; 77080

== ENCOUNTER → 2019-12-30 | Outpatient (CLI) | payer MEDICARE ==
--- NOTE | 2020-01-02 18:30 | BD ---
EXAMINATION TYPE: Axial Bone Density DATE OF EXAM: 12/30/2019 COMPARISON: NONE CLINICAL HISTORY: POSTMENOPAUSAL SCREENING Height: 62 Weight: 130.0 FRAX RISK QUESTIONS: Alcohol (3 or more units per day): no Family History (Parent hip fracture): no Glucocorticoids (More than 3mos): no (Ex: prednisone, prednisolone, methylprednisolone, dexamethasone, and hydrocortisone). History of Fracture in Adulthood: yes Secondary Osteoporosis: 1. Type 1 Diabetes: no 2. Hyperthyroidism: no 3. Menopause before 45: no 4. Malnutrition: no 5. Chronic liver disease: no Rheumatoid Arthritis: no Current Tobacco Use: no RISK FACTORS HISTORY OF: Family History of Osteoporosis: no Active: yes Postmenopausal woman: age 49 Lost more than 2 inches in height since high school: yes MEDICATIONS: Thyroid Medications: synthroid How Lon years Additional History: EXAM MEASUREMENTS: Bone mineral densitometry was performed using the [employer] System. Bone mineral density as measured about the Lumbar spine is: ----- L1-L4(G/cm2): 0.902 T Score Values are as follows: ----- L2: -2.7 ----- L3: -2.4 ----- L4: -1.8 ----- L1-L4: -2.3 Bone mineral density has: increased 6.2 % since study of: 05.18.2017 Bone mineral density about the R hip (g/cm2): 0.713 Bone mineral density about the L hip (g/cm2): 0.728 T Score values are as follows: -----R Neck: -2.3 -----L Neck: -2.2 -----R Total: -2.6 -----L Total: -2.3 Bone mineral density has: increased 1.2 % since study of: 05.18.2017 IMPRESSION: Osteoporosis (T Score less than -2.5). There is increased fracture risk and therapy is usually indicated based on age. Re-Screen 1-2 years. NOTE: T-SCORE=SD OF THE YOUNG ADULT MEAN.
== END | disposition home or self-care (01) ==
LOC: RADBDWWP 14:13
PROVIDERS: ATTEND Internal Medicine
DX: M81.0 Age-related osteoporosis without current pathological fracture (principal)
CPT/HCPCS: 77080

== ENCOUNTER → 2021-01-24 | Outpatient (CLI) | payer MEDICARE ==
--- NOTE | 2021-01-25 11:40 | MM ---
Reason for exam: screening (asymptomatic). Last mammogram was performed 3 years and 8 months ago. History: Patient is postmenopausal and has history of other cancer at age 39. Family history of breast cancer in sister at age 60. Cyst aspiration of the left breast, 1999. Physical Findings: A clinical breast exam by your physician is recommended on an annual basis and results should be correlated with mammographic findings. MG 3D Screening Mammo W/Cad Bilateral CC and MLO view(s) were taken. Prior study comparison: May 18, 2017, bilateral MG 3d screening mammo w/cad. February 19, 2015, bilateral MG screening mammo w CAD. The breast tissue is heterogeneously dense. This may lower the sensitivity of mammography. Benign appearing bilateral calcifications. No significant changes when compared with prior studies. ASSESSMENT: Benign, BI-RAD 2 RECOMMENDATION: Routine screening mammogram of both breasts in 1 year.
== END | disposition home or self-care (01) ==
LOC: RADMAMWWP 10:26
PROVIDERS: ATTEND Internal Medicine
DX: Z12.31 Encounter for screening mammogram for malignant neoplasm of breast (principal); Z78.0 Asymptomatic menopausal state; Z80.3 Family history of malignant neoplasm of breast; Z85.3 Personal history of malignant neoplasm of breast
CPT/HCPCS: 77063; 77067

== ENCOUNTER → 2022-11-21 | Outpatient (CLI) | payer MEDICARE ==
[2022-11-21 15:56] LABS: T4, Free (Free Thyroxine) 1.68 ng/dL (0.80-1.80)
== END | disposition home or self-care (01) ==
LOC: LABWHC1 11:18
PROVIDERS: ATTEND Psychiatry & Neurology Neurology
DX: F03.90 Unspecified dementia, unspecified severity, without behavioral disturbance, psychotic disturbance, mood disturbance, and anxiety (principal); R41.3 Other amnesia
CPT/HCPCS: 36415; 82607; 84207; 84439; 84443; 86592

== ENCOUNTER → 2024-05-19 | Outpatient (CLI) | payer MEDICARE ==
[2024-05-19 16:58] LABS: Basophils # (A) 0.1 k/uL (0-0.2); Basophils % (A) 1 %; Eosinophils # (A) 0.1 k/uL (0-0.7); Eosinophils % (A) 2 %; HCT 36.9 % (34.0-46.0); HGB 11.6 gm/dL (11.4-16.0); Hypochromasia Slight; Lymphocytes # (A) 1.6 k/uL (1.0-4.8); Lymphocytes % (A) 24 %; MCH 32.7 pg (25.0-35.0); MCHC 31.6 g/dL (31.0-37.0); MCV 103.4 fL (80.0-100.0); Macrocytosis Slight; Monocytes # (A) 0.4 k/uL (0-1.0); Monocytes % (A) 6 %; Neutrophils # (A) 4.2 k/uL (1.3-7.7); Neutrophils % (A) 66 %; Platelet Count 369 k/uL (150-450); RBC 3.56 m/uL (3.80-5.40); RDW 12.1 % (11.5-15.5); WBC 6.5 k/uL (3.8-10.6)
[2024-05-20 04:08] LABS: % Iron Saturation 18.46 (12.00-45.00)
== END | disposition home or self-care (01) ==
LOC: LABWHC1 16:24
PROVIDERS: ATTEND Family Medicine
DX: D53.9 Nutritional anemia, unspecified (principal)
CPT/HCPCS: 36415; 82728; 82746; 83540; 83550; 85025